=== PATIENT | female | born 1945 | race Two or more races ===

== ENCOUNTER 2021-08-23 11:20 | Outpatient (CLI) | payer MEDICARE, OTHER | END 2021-08-23 23:59 | disposition home or self-care (01) | LOC: MSC 11:20 | PROVIDERS: ATTEND Anesthesiology | DX: R20.0 Anesthesia of skin (principal); M79.641 Pain in right hand; M54.16 Radiculopathy, lumbar region; M62.830 Muscle spasm of back; M40.299 Other kyphosis, site unspecified; Z96.611 Presence of right artificial shoulder joint; Z79.891 Long term (current) use of opiate analgesic; Z79.1 Long term (current) use of non-steroidal anti-inflammatories (NSAID); Z79.82 Long term (current) use of aspirin; Z79.899 Other long term (current) drug therapy ==